=== PATIENT | female | born 1990 | race Caucasian/White ===

== ENCOUNTER 2019-12-22 17:36 | Emergency (ER) | payer BC ==
--- NOTE | 2019-12-22 19:24 | RAD REPORT ---
EXAM DESCRIPTION: RAD - Foot Right 3 View - 12/22/2019 6:28 pm CLINICAL HISTORY: PAIN, foot and ankle trauma COMPARISON: No comparisonsNone. FINDINGS: No fracture, dislocation or periosteal reaction confirmed on this study. There is a small 1- 2 mm bone density along the medial base first metatarsal. Acute avulsion is not suspected but raj elation can be made with any point tenderness at the medial first metatarsal base. . No air or foreign body in the soft tissues. IMPRESSION: No fracture or acute bone finding confirmed. Small bone density medial margin first metatarsal base is doubtful as being an avulsion. However, cor relation can be made with any point tenderness.
--- NOTE | 2019-12-22 19:25 | RAD REPORT ---
EXAM DESCRIPTION: RAD - Ankle Right 3 View - 12/22/2019 6:29 pm CLINICAL HISTORY: Twisting injury, trauma, foot and ankle pain COMPARISON: None. FINDINGS: No fracture, dislocation or periosteal reaction. No joint effusion seen. No joint space na rrowing. Significant lateral soft tissue swelling is present. IMPRESSION: Soft tissue swelling with no right ankle fracture.
--- NOTE | 2019-12-22 19:35 | ER ---
Nurse's Notes [facility] Name: Yeimy Astudillo Age: 29 yrs Sex: Female : 1990 Arrival Date: 12/22/2019 Time: 17:39 Bed 23 Private MD: Diagnosis: Sprain of ankle Presentation: 12/21 17:50 Chief complaint: Patient states: Slipped on wet concrete today. Right ankle and foot ll1 pain since. No LOC. Coronavirus screen: Proceed with normal triage. Patient denies a cough. Patient denies shortness of breath or difficulty breathing. Patient denies measured and/or subjective temperature greater than 100.4F prior to today's visit. Patient denies travel on a cruise ship or to a country the [facility] currently lists as an affected area. Patient denies contact with known and/or suspected case of COVID-19. Ebola Screen: Patient denies travel to an Ebola-affected area in the 21 days before illness onset. Initial Sepsis Screen: Does the patient meet any 2 criteria? No. Patient's initial sepsis screen is negative. Risk Assessment: Do you want to hurt yourself or someone else? Patient reports no desire to harm self or others. Onset of symptoms was December 22, 2019. 17:50 Method Of Arrival: Ambulatory ll1 17:50 Acuity: DEMETRI 4 ll1 18:39 Initial Sepsis Screen: Does the patient have a suspected source of infection? No. ca1 Patient's initial sepsis screen is negative. PULMONARY DISEASE SPECIALIST: 18:39 LMP 12/12/2019 ca1 Historical: - Allergies: 17:52 No Known Allergies; ll1 - PSHx: 17:52 None; ll1 - Social history:: Smoking status: Patient reports the use of cigarette tobacco products, smokes one-half pack cigarettes per day, Patient uses alcohol, only on a social basis. Patient/guardian denies using street drugs. Screenin:37 Abuse screen: Denies threats or abuse. Denies injuries from another. Nutritional ca1 screening: No deficits noted. Tuberculosis screening: No symptoms or risk factors identified. Fall Risk Fall in past 12 months (25 points). Ambulatory Aid- Crutches/Cane/Walker (15 pts). Assessment: 18:37 General: Appears in no apparent distress. comfortable, Behavior is calm, cooperative, ca1 appropriate for age. Pain: Complains of pain in right ankle Pain currently is 9 out of 10 on a pain scale. Neuro: Level of Consciousness is awake, alert, obeys commands, Oriented to person, place, time, situation. Derm: Skin is intact, is healthy with good turgor, Skin is pink, warm \T\ dry. Musculoskeletal: Circulation, motion, and sensation intact. Capillary refill < 3 seconds, Range of motion: limited in right ankle Swelling present in right ankle. 19:14 Reassessment: Patient appears in no apparent distress at this time. Patient is alert, ca1 oriented x 3, equal unlabored respirations, skin warm/dry/pink. Vital Signs: 17:50 BP 133 / 97; Pulse 86; Resp 17; Temp 98.2; Pulse Ox 100% ; Pain 9/10; ll1 18:30 BP 143 / 87 RA (auto/reg); Pulse 92; Resp 18; Pulse Ox 99% on R/A; jp3 19:14 BP 113 / 72; Pulse 72; Resp 15 S; Pulse Ox 98% on R/A; ca1 ED Course: 17:39 Patient arrived in ED. mr 17:51 Triage completed. ll1 17:52 Arm band placed on Patient notified of wait time. ll1 18:08 [facility]-C [facility]. kb 18:09 Lucian Lozano MD is Attending Physician. kb 18:15 X-ray(s) taken. jp3 18:26 Elzbieta Bond, RN is Primary Nurse. ca1 18:27 Ankle Right 3 View XRAY In Process Unspecified. EDMS 18:27 Foot Right 3 View XRAY In Process Unspecified. EDMS 18:31 Bed in low position. Call light in reach. Verbal reassurance given. Pulse ox on. NIBP jp3 on. 18:37 No provider procedures requiring assistance completed. Patient did not have IV access ca1 during this emergency room visit. 19:50 Crutch training done. Juan wrap to right ankle Orthoglass splint: Posterior short lleg jp3 splint applied on right leg. Administered Medications: No medications were administered Outcome: 19:34 Discharge ordered by . kb 19:51 Discharged to home ambulatory, with crutches. ca1 19:51 Condition: stable 19:51 Discharge instructions given to patient, Instructed on discharge instructions, follow up and referral plans. medication usage, Demonstrated understanding of instructions, follow-up care, medications, Prescriptions given X 1. 19:51 Patient left the ED. ca1 Signatures: Dispatcher [employer] Sandy Rojas, CARLINE PALMA-Gi Maharaj mr Nidia, Paresh perez3 Elzbieta Bond, RN RN ca1 Korin Gonzalez RN RN ll1
--- NOTE | 2019-12-22 19:35 | EDPHYS ---
Physician Documentation [facility] Name: Yeimy Astudillo Age: 29 yrs Sex: Female : 1990 Arrival Date: 12/22/2019 Time: 17:39 Bed 23 Private MD: ED Physician Lucian Lozano HPI: 12/21 19:33 This 29 yrs old Female presents to ER via Ambulatory with complaints of Fall kb Injury, Foot Injury. 19:33 The patient presents with an injury, pain, swelling, tenderness. The complaints affect kb the right ankle. Onset: The symptoms/episode began/occurred just prior to arrival. Context: The problem was sustained outdoors, resulted from the patient tripping, The mechanism of injury involved inversion of the affected ankle. The patient can partially bear weight on the affected extremity. can ambulate using crutches. Associated signs and symptoms: Pertinent positives: swelling, Pertinent negatives: calf tenderness, fever, nausea, numbness, rash, tingling, vomiting, warmth, weakness. Modifying factors: The symptoms are alleviated by nothing, the symptoms are aggravated by weight bearing. Severity of symptoms: At their worst the symptoms were moderate, in the emergency department the symptoms are unchanged. The patient has not experienced similar symptoms in the past. The patient has not recently seen a physician. Pt reports she tripped in a parking lot. . [employer]: 18:39 LMP 12/12/2019 ca1 Historical: - Allergies: 17:52 No Known Allergies; ll1 - PSHx: 17:52 None; ll1 - Social history:: Smoking status: Patient reports the use of cigarette tobacco products, smokes one-half pack cigarettes per day, Patient uses alcohol, only on a social basis. Patient/guardian denies using street drugs. ROS: 19:30 Constitutional: Negative for fever, chills, and weight loss, Cardiovascular: Negative kb for chest pain, palpitations, and edema, Respiratory: Negative for shortness of breath, cough, wheezing, and pleuritic chest pain, Abdomen/GI: Negative for abdominal pain, nausea, vomiting, diarrhea, and constipation, Back: Negative for injury and pain, Skin: Negative for injury, rash, and discoloration, Neuro: Negative for headache, weakness, numbness, tingling, and seizure. 19:30 MS/extremity: Positive for injury or acute deformity, decreased range of motion, pain, swelling, tenderness, of the right ankle. Exam: 19:30 Constitutional: This is a well developed, well nourished patient who is awake, alert, kb and in no acute distress. Head/Face: Normocephalic, atraumatic. Chest/axilla: Normal chest wall appearance and motion. Nontender with no deformity. No lesions are appreciated. Cardiovascular: Regular rate and rhythm with a normal S1 and S2. No gallops, murmurs, or rubs. Normal PMI, no JVD. No pulse deficits. Respiratory: Lungs have equal breath sounds bilaterally, clear to auscultation and percussion. No rales, rhonchi or wheezes noted. No increased work of breathing, no retractions or nasal flaring. Abdomen/GI: Soft, non-tender, with normal bowel sounds. No distension or tympany. No guarding or rebound. No evidence of tenderness throughout. Neuro: Awake and alert, GCS 15, oriented to person, place, time, and situation. Cranial nerves II-XII grossly intact. Motor strength 5/5 in all extremities. Sensory grossly intact. Cerebellar exam normal. Normal gait. 19:30 Musculoskeletal/extremity: Extremities: grossly normal except: noted in the right ankle: pain, swelling, tenderness, ROM: limited active range of motion due to pain, Circulation is intact in all extremities. Sensation intact. Weight bearing: can bear weight with assistance only, uses crutches. Vital Signs: 17:50 BP 133 / 97; Pulse 86; Resp 17; Temp 98.2; Pulse Ox 100% ; Pain 9/10; ll1 18:30 BP 143 / 87 RA (auto/reg); Pulse 92; Resp 18; Pulse Ox 99% on R/A; jp3 19:14 BP 113 / 72; Pulse 72; Resp 15 S; Pulse Ox 98% on R/A; ca1 MDM: 18:24 Patient medically screened. kb 19:30 Data reviewed: vital signs, nurses notes. Data interpreted: Pulse oximetry: on room air kb is 98 %. Interpretation: normal. Counseling: I had a detailed discussion with the patient and/or guardian regarding: the historical points, exam findings, and any diagnostic results supporting the discharge/admit diagnosis, radiology results, the need for outpatient follow up, a family practitioner, to return to the emergency department if symptoms worsen or persist or if there are any questions or concerns that arise at home. 12/21 17:55 Order name: Ankle Right 3 View XRAY; Complete Time: 19:35 ss 12/21 17:55 Order name: Foot Right 3 View XRAY; Complete Time: 19:29 ss 12/21 19:22 Order name: Short Leg Splint; Complete Time: 19:46 kb Administered Medications: No medications were administered Disposition: 12/22/19 19:34 Discharged to Home. Impression: Sprain of ankle. - Condition is Stable. - Discharge Instructions: Ankle Sprain, [id number]. - Prescriptions for Diclofenac Sodium 75 mg Oral Tablet, Delayed Release (E.C.) - take 1 tablet by ORAL route 2 times per day As needed; 30 tablet. - Work release form, Medication Reconciliation Form, Thank You Letter, Antibiotic Education, Prescription Opioid Use form. - Follow up: Emergency Department; When: As needed; Reason: Worsening of condition. Follow up: Private Physician; When: 2 - 3 days; Reason: Recheck today's complaints, Continuance of care, Re-evaluation by your physician. Addendum: 12/24/2019 05:36 Co-signature as Attending Physician, Lucian Lozano MD. m Signatures: Dispatcher [employer] EDSandy Tobin FNP-C FNP-Elzbieta Cervantes RN RN ca1 Korin Gonzalez RN RN ll1 Lucian Lozano MD MD [id number] Corrections: (The following items were deleted from the chart) 12/21 19:51 19:34 12/22/2019 19:34 Discharged to Home. Impression: Sprain of ankle. Condition is ca1 Stable. Forms are Medication Reconciliation Form, Thank You Letter, Antibiotic Education, Prescription Opioid Use. Follow up: Emergency Department; When: As needed; Reason: Worsening of condition. Follow up: Private Physician; When: 2 - 3 days; Reason: Recheck today's complaints, Continuance of care, Re-evaluation by your physician. kb
[2019-12-22 20:06] VITALS: TEMP 98.2
[2019-12-22 20:09] VITALS: BP 113/72; O2SAT 98
== END 2019-12-22 19:51 | disposition home or self-care (01) ==
LOC: ER 17:36
DX: S93.401A Sprain of unspecified ligament of right ankle, initial encounter (principal); W01.0XXA Fall on same level from slipping, tripping and stumbling without subsequent striking against object, initial encounter; Y93.01 Activity, walking, marching and hiking; Y92.481 Parking lot as the place of occurrence of the external cause; F17.210 Nicotine dependence, cigarettes, uncomplicated
CPT/HCPCS: 99284